=== PATIENT | female | born 1965 | race Caucasian/White ===

== ENCOUNTER → 2024-01-27 13:59 | Outpatient (REF) | payer BC, SELFPAY | LOC: WDC 13:59 | PROVIDERS: ATTENDING PHYSICIAN Obstetrics & Gynecology; FAMILY PHYSICIAN Family Medicine | DX: Z12.31 Encounter for screening mammogram for malignant neoplasm of breast (principal); R92.8 Other abnormal and inconclusive findings on diagnostic imaging of breast | CPT/HCPCS: 76642; 77063; 77067 ==

== ENCOUNTER 2025-03-09 20:02 | Emergency (ER) | payer BC, SELFPAY ==
[2025-03-09 20:09] VITALS: BP 192/121
[2025-03-09 20:40] LABS: % Basophils 0.4 % (0-2); % Eosinophils 1.6 % (0-6); % Immature Granulocytes 0.4 % (0-0.5); % Lymphocytes 40.5 % (20.5-51.1); % Monocytes 7.4 % (1.7-9.3); % Neutrophils 49.7 % (42.2-75.2); Absolute Eosinophils 0.1 10^3/uL (0-0.7); Absolute Lymphocytes 2.3 10^3/uL (1.2-3.4); Absolute Monocytes 0.4 10^3/uL (0.1-0.6); Absolute Neutrophils 2.8 10^3/uL (1.4-6.5); Hematocrit 42.7 % (37.0-47.0); Hemoglobin 14.6 g/dL (12.0-16.0); Mean Corp Hgb Conc. 34.2 g/dL (33.0-37.0); Mean Corpuscular Hgb 29.4 pg (27.0-31.0); Mean Corpuscular Volume 85.9 fL (81.0-99.0); Mean Platelet Volume 9.5 fL (7.4-10.4); Nucleated Red Blood Cells % 0 %; Platelet Count 204 10^3/uL (130-400); Red Blood Cell Count 4.97 10^6/uL (4.20-5.40); White Blood Cell Count 5.7 10^3/uL (4.8-10.8)
[2025-03-09 20:49] LABS: ALT (SGPT) 20 U/L (0-35); AST (SGOT) 30 U/L (14-36); Albumin 4.9 g/dl (3.5-5.0); Alkaline Phosphatase 78 U/L (38-126); Blood Urea Nitrogen 19 mg/dl (7-17); Calcium 8.9 mg/dl (8.4-10.2); Carbon Dioxide 28 mmol/L (22-30); Chloride 103 mmol/L (98-107); Glucose 151 mg/dl (70-99); Potassium 4.1 mmol/L (3.5-5.1); Sodium 142 mmol/L (135-145); Total Bilirubin 0.5 mg/dl (0.2-1.3); Total Protein 7.7 g/dl (6.3-8.2); eGFR > 60.00
[2025-03-09 23:00] VITALS: BP 135/76; BMI 25.0
--- NOTE | 2025-03-10 01:48 | ED.GENMED ---
History of Present Illness
General
Chief Complaint: Dizziness
Source: patient and family
Exam Limitations: none
Time Seen by Provider: 03/09/25 23:04
Nursing documentation reviewed up to this point in time: agreed with
History of Present Illness
History of Present Illness:
59-year-old female presenting to the emergency department today with concerns of room spinning dizziness over the past 2 weeks or so intermittently. Seems to be worse with certain positioning improves with rest. Has had similar episodes in the
past. Denies any numbness weakness headache neck pain or additional concerns otherwise.
Past History
Past History
ED Past Medical History: None
ED Past Surgical History: Gynecological, Tonsilectomy and Other (Parathyroidectomy May 2021)
Social History
Tobacco: Non-smoker
Alcohol: None
Drug: None
Living: alone
Employment: Employed
Review of Systems
Review of Systems
Allergies reviewed?: Yes
All Other Systems: ROS reviewed and negative except as documented in HPI and ROS
Phy Exam
Physical Exam
Physical Exam:
GENERAL: Alert , in no apparent distress
EYE: pupils equal and reactive
NECK: Supple, no significant adenopathy.
ENT: o/p clr, mmm.
CARDIAC: Regular rate and rhythm .
LUNGS: Clear breath sounds bilaterally, no acute respiratory distress, no wheezes/rales/rhonchi
ABDOMEN: Soft, without focal tenderness, no r/g, no cvat
NEUROLOGICAL: Alert and oriented, no focal neuro deficits 5-5 upper and lower extremity strength normal sensation when palpating bilaterally normal finger-nose and [id number] no pronator drift
SKIN: Warm and dry, skin intact.
MUSCULOSKELETAL: No edema, well perfused.
PSYCH: Normal and appropriate interaction.
Course
Orders/Labs/Results
Orders:
Orders
03/09/25 20:08
EKG [Electrocardiogram (*1)] Urgent
Reason for Study: Vertigo / Dizzy
EKG- Treatment ONCE
03/09/25 20:23
CBC/With Diff [Complete Blood Count/With Diff] Urgent
CMP [Comprehensive Metabolic Panel] Urgent
03/10/25 00:04
CT Head W/o Iv Contrast Urgent
Comment:
Reason For Exam: headache/dizziness
Abnormal Lab Results
03/09/25
20:23
BUN 19 H mg/dl
(7-17)
Glucose 151 H mg/dl
(70-99)
03/09/25 20:23
03/09/25 20:23
Vital Signs
Initial and Last Documented VS:
Initial Vital Signs
Temp Pulse Resp BP Pulse Ox
97.9 F 116 15 192/121 98
03/09/25 20:09 03/09/25 20:09 03/09/25 20:09 03/09/25 20:09 03/09/25 20:09
Last Documented Vital Signs
Temp Pulse Resp BP Pulse Ox
97.9 F 68 16 135/76 99
03/09/25 20:09 03/09/25 23:00 03/09/25 23:00 03/09/25 23:00 03/09/25 23:00
MDM/Problems Addressed
MDM/Problems Addressed:
59-year-old female presenting to the emergency department today with concerns of room spinning dizziness over the past 2 weeks intermittently. Episodes are generally short-lived. Improves with rest. Arrival here initially blood pressure is
elevated however this improved without specific treatment. Labs unremarkable. Patient refusing treatment at this time symptoms very minimal. Normal neurologic evaluation ambulating with steady gait. Head CT without emergent findings. Patient
with likely peripheral vertigo plan for close outpatient follow-up. Return precautions given.
*Critical Care Note
Total Time (30-74mins, 75-104mins- exclusive of procedures): Not Applicable
ED Attending Note
-
Portions of this chart may have been created with voice recognition software.� Occasional wrong word or��sound alike� substitutions may have occurred due to the inherent limitations of voice recognition software.
Discharge Plan
Departure
Patient Disposition: Home (Routine Discharge)
Date of Disposition: 03/10/25
Time of Disposition: 01:49
Patient with high blood pressure during this ER visit?: No
Condition: Good
Covid-19: Not Applicable
Discharge Problem:
Vertigo
Instructions: Vertigo (a Type of Dizziness) (DC)
Prescriptions:
No Action
No Current Medications
0
Referrals:
Edvin Ashraf MD [Active] - Follow up in 5-7 days
Roseann Olivas, [Family Provider] -
Activity Restrictions/Additional Instructions:
You came to the emergency department today with concerns of vertigo. Please go closely with vestibular rehab as well as ENT. Return for any worsening, new or concerning symptoms.
Interventions
Interventions:
*Risk Screen - Suicide Last Done: 03/09/25 20:09
*General Assessment Last Done: 03/09/25 20:09
*Neglect/Abuse Screening Last Done: 03/09/25 20:09
ED- Neurological Assessment Last Done: 03/09/25 23:00
ED Swallowing Screen Last Done: 03/09/25 23:00
Discharge Date and Time
Print Language: ARMENIAN
[2025-03-10 02:01] VITALS: BP 138/85
== END 2025-03-10 02:01 | disposition home or self-care (01) ==
LOC: EMR 20:02
PROVIDERS: Student in an Organized Health Care Education/Training Program; EMERGENCY PHYSICIAN Emergency Medicine; FAMILY PHYSICIAN Family Medicine
DX: R42 Dizziness and giddiness (principal); Z90.89 Acquired absence of other organs
CPT/HCPCS: 99284; 70450; 80053; 85025; 93005

== ENCOUNTER → 2025-03-10 14:04 | Outpatient (REF) | payer BC, SELFPAY | LOC: HWWDC 14:04 | PROVIDERS: ATTENDING PHYSICIAN Family Medicine; REFERRING PHYSICIAN Obstetrics & Gynecology | DX: Z12.31 Encounter for screening mammogram for malignant neoplasm of breast (principal) | CPT/HCPCS: 77063; 77067 ==

== ENCOUNTER → 2025-10-18 12:49 | Outpatient (REF) | payer BC, SELFPAY | LOC: WDC 12:49 | PROVIDERS: ATTENDING PHYSICIAN Obstetrics & Gynecology; FAMILY PHYSICIAN Family Medicine | DX: R92.30 Dense breasts, unspecified (principal) | CPT/HCPCS: 76641 ==